=== PATIENT | female | born 1970 | race Caucasian/White ===

== ENCOUNTER 2016-10-04 11:22 | Emergency (ER) | payer OTHER, MEDICAID ==
[2016-10-04 11:29] VITALS: BP 155/85; BMI 23.9
--- NOTE | 2016-10-04 12:16 | DR.GENAD ---
HPI - PCP Primary Care Physician: GRACE - HPI Comment HPI Comment: HISTORY BELOW. - Complaint/Symptoms Chief Complaint Doctors Comments: INJURY LEFT SIDE FEW WEEKS AGO. PATIENT HAVE NOT HAD NEW INJURY. RIGHT HIP PAIN GOING INTO LLE NOW STARTED AND IS WORSE TODAY. Chief Complaint:: PATIENT STATED SHE FELL ON HER LEFT SIDE ABOUT A MONTH AGO AND SHE STARTED HURTING ABOUT A WEEK AGO. HAS A APPOINTMENT WITH DR EDWARDS THIS MONDAY AT 230. - Nurses notes reviewed Nurses Notes Review: Yes - Source History Provided: Patient - Mode of Arrival Mode of Arrival: Ambulatory - Timing Onset of Chief Complaint: 09/27/16 Came on: Suddenly - Duration Duration: Constant Duration: Days - Severity Severity: Moderate PMH - PMH Past Medical History: Yes Past Medical History: Anxiety, Asthma, GERD, Hypertension Past Surgical History: Yes Surgical History: , Cholecystectomy Past Surgical History Comment: BREAST REDUCTION, TOUNGE SURGERY - Family History History of Family Medical Conditions: No - Social History Does patient currently use any type of tobacco product: Yes Have you used tobacco products in the last 12 months: Yes Type of Tobacco Use: Cigarettes How many years tobacco product used: 20 Does any household member use tobacco: Yes Alcohol Use: None Do you use any recreational Drugs:: No Lives With: Family Lives Where: Home - infectious screening In the last 2 months have you had wt loss of >10#?: NO Have you had fever, night sweats or hemotysis?: No Have you traveled outside the country in the last 6 months?: No Isolation: Standard ROS - Review of Systems Constitutional: No Symptoms Reported Eyes: No Symptoms Reported ENTM: No Symptoms Reported Respiratoy: No Symptoms Reported Cardiovascular: No Symptoms Reported Gastrointestinal/Abdominal: No Symptoms Reported Genitourinary: No Symptoms Reported Neurological: No Symptoms Reported Musculoskeletal: Left, Hip Integumentary: No Symptoms Reported Hematologic/Lymphatic: No Symptoms Reported Endocrine: No Symptoms Reported All Other Systems: Reviewed and Negative PE - Vital Signs Vitals: Temperature 98.1 F Pulse Rate 68 Respiratory Rate 16 Blood Pressure 155/85 O2 Sat by Pulse Oximetry 98 - General Limitations: No Limitations General Appearance: Alert - Head Head Exam: Normal Inspection - Eyes Eye exam: Normal Appearance - ENT ENT Exam: Normal External Ear Exam External Ear Exam: Normal External Inspection Mouth Exam: Normal Inspection Throat Exam: Normal Inspection - Neck Neck Exam: Trachea Midline - Respiratory Respiratory Exam: Normal Lung Sounds Bilat Respiratory Exam: Bilateral Clear to Auscultation - Cardiovascular Cardiovascular Exam: Regular Rate, Normal Rhythm, Normal Heart Sounds - Abdominal Exam Abdominal Exam: Normal Bowel Sounds, Soft. negative: Tenderness - Extremities Extremities Exam: Tenderness (LT HIP) - Back Back Exam: Paraspinal Tenderness - Neurologic Neurological Exam: Alert, Oriented X3 - Psychiatric Psychiatric Exam: Normal Affect, Normal Mood - Skin Skin Exam: Normal Color MDM - Differential Diagnosis Differential Diagnosis: LEFT HIP FRACTURE, LEFT HIP SPRAIN AND STRAIN Course - Treatment Treatment: SEE ORDERS. - Reevaluation 1st: Improved (AFTER IM MEDS FOR PAIN IN ED.) - Education/Counseling Education/Counseling: Patient, Education Educated On: Treatment, Diagnosis, Needs for Follow Up ROR - XRAY XRAY Interpreted by: Radiologist XRAY Findings: REPORT DISCUSS WITH PATIENT. - Diagnosis Discharge Problem: Left hip pain - Discharge Plan Disposition: 01 HOME, SELF-CARE Condition: Stable Prescriptions: Acetaminophen W/ Codeine [Tylenol/Codeine #3 300-30 mg] 1 tab PO Q6H PRN #15 tab PRN Reason: Pain Cyclobenzaprine HCl [FLEXERIL 10 MG *] 10 mg PO TID PRN #15 tab PRN Reason: Ibuprofen [MOTRIN TAB 600 MG *] 600 mg PO TID PRN #20 tab PRN Reason: Pain/Inflammation - Follow ups/Referrals Follow ups/Referrals: ESTEBAN EDWARDS [Primary Care Provider] - 3 days - Instructions Instructions: Hip Pain Additional Instructions: RETURN TO ED IF WORSE.
[2016-10-04] MEDS ORDERED: TORADOL 60 MG VIAL IM ONE (12:17)
[2016-10-04] MEDS ORDERED: NORFLEX INJ IM ONE (12:17)
[2016-10-04] MEDS ORDERED: NORFLEX INJ ONE (12:34)
[2016-10-04] MEDS ORDERED: TORADOL 60 MG VIAL ONE (12:34)
--- NOTE | 2016-10-04 12:49 | RAD ---
HISTORY: Left hip pain status post fall 1 month ago Study: Two views left hip Comparison: None Findings: Normal alignment. No acute fracture or dislocation. The soft tissues are unremarkable. 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 IMPRESSION: 1. No acute osseous abnormality. Reported By:
== END 2016-10-04 13:11 | disposition home or self-care (01) ==
LOC: ER 11:22
DX: M25.552 Pain in left hip (principal); W19.XXXA Unspecified fall, initial encounter; Y92.9 Unspecified place or not applicable
CPT/HCPCS: 73501; 96372; 99282; J1885; J2360

== ENCOUNTER → 2016-10-14 | Outpatient (CLI) | payer OTHER, MEDICAID ==
[2016-10-04 11:29] VITALS: BP 155/85
[2016-10-14 10:24] LABS: BASOPHILS # (AUTO) 0.1 X10^3/uL (0.0-0.1); BASOPHILS % (AUTO) 0.9 % (0.2-1.0); EOSINOPHILS # (AUTO) 0.8 x10^3/uL (0.0-0.2); EOSINOPHILS % (AUTO) 5.5 % (0.9-2.9); HEMOGLOBIN 13.1 g/dL (12.0-16.0); LYMPHOCYTES # (AUTO) 4.9 X10^3/uL (1.3-2.9); LYMPHOCYTES % (AUTO) 34.2 % (21.0-51.0); MEAN CORPUSCULAR HEMOGLOBIN 29.4 pg (27.0-34.0); MEAN CORPUSCULAR HGB CONC 33.5 g/dL (33.0-35.0); MEAN CORPUSCULAR VOLUME 87.8 fL (80.0-100.0); MONOCYTES # (AUTO) 0.9 x10^3/uL (0.3-0.8); MONOCYTES % (AUTO) 6.1 % (0.0-13.0); NEUTROPHILS # (AUTO) 7.6 x10^3/uL (2.2-4.8); NEUTROPHILS % (AUTO) 53.3 % (42.0-75.0); PLATELET COUNT 296 X10^3/uL (150.0-450.0); RED BLOOD COUNT 4.45 X10^6/uL (3.5-5.4); RED CELL DISTRIBUTION WIDTH 13.5 % (11.6-16.5); WHITE BLOOD COUNT 14.3 X10^3/uL (3.6-10.0)
[2016-10-14 10:37] LABS: ALANINE AMINOTRANSFERASE 26 Units/L (12-78); ALBUMIN 3.9 g/dL (3.4-5.0); ALKALINE PHOSPHATASE 67 Units/L (46-116); ASPARTATE AMINO TRANSFERASE 18 Units/L (15-37); BLOOD UREA NITROGEN 16 mg/dL (7-18); CALCIUM 8.9 mg/dL (8.5-10.1); CARBON DIOXIDE 29.9 mmol/L (21-32); CHLORIDE 106 mmol/L (98-107); GLUCOSE 97 mg/dL (65-99); HDL CHOLESTEROL 39 mg/dL (40-60); SODIUM 145 mmol/L (136-145); TRIGLYCERIDES 80 mg/dL (0-150); eGFR BLACK RACES > 60 (>60); eGFR NON BLACK RACES > 60 (>60)
[2016-10-14 10:50] LABS: CHOL/HDL RATIO 3.5 (0.0-5.0); CHOLESTEROL 137 mg/dL (0-200)
== END ==
LOC: LAB 09:43
PROVIDERS: ATTEND Obstetrics & Gynecology Obstetrics
DX: I10 Essential (primary) hypertension (principal)
CPT/HCPCS: 36415; 80053; 80061; 85025

== ENCOUNTER → 2016-10-18 | Outpatient (CLI) | payer OTHER, MEDICAID ==
[2016-10-04 11:29] VITALS: BP 155/85
== END ==
LOC: RAD 10:46
PROVIDERS: ATTEND Obstetrics & Gynecology Obstetrics
DX: Z12.31 Encounter for screening mammogram for malignant neoplasm of breast (principal); I10 Essential (primary) hypertension
CPT/HCPCS: 77067